=== PATIENT | male | born 1935 | race Caucasian/White ===

== ENCOUNTER 2019-07-31 18:28 | Emergency (ER) | payer MEDICARE ==
[~2019-07-31] VITALS: Ht 182.9 cm; Wt 72.1 kg
[2019-07-31 19:20] LABS: Source, Urine Clean Catch
[2019-07-31 19:38] LABS: Bilirubin, Urine Neg (Neg); Blood, Urine 5+ (Neg); Glucose Qualitative, Urine Neg (Neg); Ketones, Urine 2+ (Neg); Leukocyte Esterase, Urine 2+ (Neg); Nitrite, Urine Pos (Neg); Protein, Urine 3+ (Neg); Urobilinogen, Urine 1+ (Normal)
[2019-07-31 19:47] LABS: Appearance, Urine Cloudy (Clear); Color, Urine Amber (P-Yellow)
[2019-07-31 19:49] LABS: Red Blood Cells, Urine TNTC /hpf (0-2)
[2019-07-31 19:50] LABS: Bacteria Rare /hpf; Squamous Epithelial Cells Not Seen /hpf (Few)
[2019-07-31 20:08] LABS: BASOPHILS ABSOLUTE AUTO 0.02 K/mm3 (0.00-0.23); BASOPHILS PERCENT AUTO 0 % (0-2); RDW Coefficient Variation 13.5 % (11.7-14.2)
[2019-07-31 20:16] LABS: EOSINOPHILS ABSOLUTE AUTO 0.02 K/mm3 (0.00-0.68); EOSINOPHILS PERCENT AUTO 0 % (0-6); Hematocrit 34.5 % (37.0-53.0); Hemoglobin 11.2 g/dL (13.5-17.5); IMMATURE GRAN ABSOLUTE AUTO 0.04 K/mm3 (0.00-0.10); IMMATURE GRAN PERCENT AUTO 1 % (0-1); LYMPHOCYTES ABSOLUTE AUTO 1.36 K/mm3 (0.84-5.20); LYMPHOCYTES PERCENT AUTO 16 % (21-46); MONOCYTES ABSOLUTE AUTO 0.85 K/mm3 (0.16-1.47); MONOCYTES PERCENT AUTO 10 % (4-13); Mean Corpuscular HGB Conc 32.5 g/dL (31.5-36.5); Mean Corpuscular Volume 99 fL (80-100); NEUTROPHILS ABSOLUTE AUTO 6.41 K/mm3 (1.96-9.15); NEUTROPHILS PERCENT AUTO 74 % (41-73); RDW Standard Deviation 49.1 fL (35.1-46.3)
[2019-07-31 20:23] LABS: Albumin, Blood 3.2 g/dL (3.4-5.0); Albumin/Globulin Ratio 0.8 (0.8-1.8); Bilirubin, Total 0.5 mg/dL (0.1-1.0); Bun/Creatinine Ratio 15.2 (12.0-20.0); Calcium, Blood 8.5 mg/dL (8.5-10.1); Creatinine, Blood 1.25 mg/dL (0.60-1.20); Globulin, Blood 3.8 g/dL (2.2-4.0); Potassium, Blood 3.9 mmol/L (3.5-5.5)
[2019-07-31 20:26] LABS: Mean Platelet Volume 9.8 fL (9.1-12.4); Platelet Count 89 K/mm3 (150-400)
[2019-07-31] MEDS ORDERED: CEPH500 PO (21:37)
[2019-07-31] MEDS ORDERED: CLON1 PO (22:01)
[2019-07-31] MEDS ORDERED: Simvastatin40 MG PO (22:02)
[2019-07-31] MEDS ORDERED: Pentoxifylline400 MG PO (22:03)
[2019-07-31] MEDS ORDERED: OMEPRAZOLE20 MG PO (22:19)
== END 2019-07-31 22:08 | disposition left against medical advice (07) ==
LOC: ER 18:28
PROVIDERS: Emergency Medicine
DX: N39.0 Urinary tract infection, site not specified (principal); R41.82 Altered mental status, unspecified; F17.200 Nicotine dependence, unspecified, uncomplicated
CPT/HCPCS: 80053; 81001; 85025; 87086; 93005; 93010; 96365; 99285-25; J0696